=== PATIENT | male | born 1995 ===

== ENCOUNTER 2022-09-29 17:47 | Emergency (ER) | payer OTHER ==
[~2022-09-29] VITALS: Ht 177.8 cm; Wt 83.9 kg
[~2022-09-29 17:47] MED LIST: ACET325UDC; ACYC5TO15G TOP; ALBU90OI INH; AMOCLA875 PO; AMOX250CH PO; AMOX50SU PO; Amoxicillin500 MG PO; CIPRO500 MG PO; CLOT1TC TOP; CODACEE120 PO; ERYT.5TO BOTHEYES; ERYT.5TO OD; HYDACE5 PO; HYDR1TAB94 PO; Keflex500 MG PO; NAPR500 PO; OTC PAIN MEDS; PROACE100 PO; Permethrin60 GM TP; RXLORA1 PO; RXPROACE PO; XERESE 5%-1% CRE5 GM TP; Zovirax400 MG PO
== END 2022-09-29 18:40 | disposition home or self-care (01) ==
LOC: ER 17:47
DX: J02.8 Acute pharyngitis due to other specified organisms (principal); F17.210 Nicotine dependence, cigarettes, uncomplicated
CPT/HCPCS: 87430; 99282

== ENCOUNTER → 2023-02-06 | Outpatient (CLI) | payer OTHER ==
[2023-02-09 00:07] LABS: CHLAMYDIA TRACHOMATIS, NAA Negative (Negative)
== END | disposition home or self-care (01) ==
LOC: LAB SHORT 17:00 → LAB 17:00
PROVIDERS: Physician Assistant
DX: Z20.9 Contact with and (suspected) exposure to unspecified communicable disease (principal)
CPT/HCPCS: 87491; 87591

== ENCOUNTER → 2024-05-20 | Outpatient (CLI) | payer OTHER ==
[2024-05-20 16:54] LABS: Source, Urine Clean Catch
[2024-05-20 19:23] LABS: Appearance, Urine Clear (Clear); Bilirubin, Urine Neg (Neg); Blood, Urine Neg (Neg); Color, Urine Yellow (P-Yellow); Glucose Qualitative, Urine Neg (Neg); Ketones, Urine Neg (Neg); Leukocyte Esterase, Urine Neg (Neg); Nitrite, Urine Neg (Neg); Protein, Urine Neg (Neg); Urobilinogen, Urine 1+ (Normal)
[2024-05-20 19:33] LABS: Bacteria Rare /hpf; Red Blood Cells, Urine 0-2 /hpf (0-2); Squamous Epithelial Cells Not Seen /hpf (Few); White Blood Cells, Urine 0-2 /hpf (0-5)
[2024-05-24 20:28] LABS: APTIMA MEDIA TYPE Urine; C. TRACHOMATIS BY TMA Negative (Negative); N. GONORRHOEAE BY TMA Negative (Negative); SPECIMEN SOURCE Urine; T. VAGINALIS BY TMA Negative (Negative)
== END ==
LOC: LAB 16:51 → LAB SHORT 16:51
DX: R82.90 Unspecified abnormal findings in urine (principal); Z72.51 High risk heterosexual behavior
CPT/HCPCS: 81001; 81003; 87491; 87591; 87661

== ENCOUNTER → 2024-08-09 | Outpatient (CLI) | payer OTHER | END | disposition home or self-care (01) | LOC: LAB SHORT 07:59 → LAB 07:59 | DX: L72.0 Epidermal cyst (principal) | CPT/HCPCS: 88304 ==

== ENCOUNTER 2024-10-07 19:00 | Emergency (ER) | payer OTHER ==
[~2024-10-07] VITALS: Ht 177.8 cm; Wt 81.7 kg
[2024-10-07 19:42] VITALS: BP 146/86
== END 2024-10-07 22:06 | disposition other institution (70) ==
LOC: ER 19:00
DX: S61.211A Laceration without foreign body of left index finger without damage to nail, initial encounter (principal); W26.8XXA Contact with other sharp object(s), not elsewhere classified, initial encounter
CPT/HCPCS: 12001; 99282-25

== ENCOUNTER 2025-01-23 20:46 | Emergency (ER) | payer OTHER ==
[~2025-01-23 20:46] MED LIST changes: +IBUP800 PO
== END 2025-01-23 21:14 | disposition left against medical advice (07) ==
LOC: ER 20:46
DX: M79.89 Other specified soft tissue disorders (principal); M79.672 Pain in left foot; Z53.21 Procedure and treatment not carried out due to patient leaving prior to being seen by health care provider